=== PATIENT | female | born 1975 | race Hispanic/Latino ===

== ENCOUNTER 2021-06-19 08:34 | Emergency (ER) | payer SELFPAY ==
[~2021-06-19] VITALS: Ht 152.4 cm; Wt 68.0 kg
[2021-06-19 10:19] VITALS: BP 116/80
== END 2021-06-19 10:21 | disposition home or self-care (01) ==
LOC: ER 09:16
DX: R05.9 Cough, unspecified (principal); B34.9 Viral infection, unspecified; Z20.822 Contact with and (suspected) exposure to COVID-19
CPT/HCPCS: 87400; 99282; U0002